=== PATIENT | male | born 1990 | race Asian ===

== ENCOUNTER 2024-08-15 14:26 | Outpatient (REF) | payer BC, SELFPAY ==
--- NOTE | 2024-08-15 | EEG_ITS ---
This is a 16 channel EEG with an EKG lead. Patient is reported awake during the tracing. Background EEG rhythm is mixed theta beta low amplitude with no obvious asymmetry or paroxysmal tendency. Photic stimulation does not produce any significant abnormality. Hyperventilation is unremarkable. No sharp wave spikes or paroxysmal tendency noted. Impression: No significant abnormality noted on this EEG. MTDD
--- OUTSIDE RECORDS SUMMARY | 2024-08-15 14:30 | XMS_ITS | Clinical Summary ---
Author Organization [facility] Address [address] [place] [id number] Phone Care Team Providers Care Records Technician Name Role Phone Parag Grijalva MD Primary Care Provider [phone] Allergies No known active allergies Medications hydroCHLOROthia zide (HYDRODIURIL) 25 mg tablet Take 1 tablet (25 mg total) by mouth daily. 01/16/2024 Active irbesartan (AVAPRO) 75 mg tablet Take 1 tablet (75 mg total) by mouth 1 (one) time each day. Active levETIRAcetam (KEPPRA) 250 mg tablet Take 3 tablets (750 mg total) by mouth 2 (two) times a day for 21 days, THEN 2 tablets (500 mg total) 2 (two) times a day for 7 days. 154 each 04/08/2024 Active Active Problems Problem Noted Date Diagnosed Date SIRS (systemic inflammatory response syndrome) (CMS/HCC V24, CMS/HCC V28) 04/04/2024 Medical History Medical History Date Comments Hypertension Hypercholesteremia Social History Tobacco Use Types Packs/Day Years Used Date Smoking Tobacco: Never Tobacco Cessation:Counseling Given: Not Answered Alcohol Use Standard Drinks/Week Comments Never 0 (1 standard drink = 0.6 oz pur e alcohol) Interpersonal Safety Answer Date Record ed Physical Abuse 2024 Verbal Abuse 2024 Sex and Gender Information Value Date Recorded Sex Assigned at Male 04/04/2024 4:42 PM EST Legal Sex Male 4:06 PM EST Gender Identity Male 04/04/2024 4:42 PM EST Sexual Orientation Straight 04/04/2024 4: 42 PM EST Obstetrics History Last Filed Vital Signs Vital Sign Reading Time Taken Comments Blood Pressure 139/90 04/08/2024 3:23 PM EST Pulse 78 04/08/2024 3:23 PM EST Temperature 36.7 C (98 F) 04/08/2024 3:23 PM EST Respiratory Rate 12 04/08/2024 3:23 PM EST Oxygen Saturation 99% 04/08/2024 3:23 PM EST Inhaled Oxygen Concentration - - Weight 79.4 kg (175 lb) 04/04/2024 7:45 PM EST Height 175.3 cm (5' 9 ) 04/04/2024 7:45 PM EST Body Mass Index 25.84 04/04/2024 7:45 PM EST Plan of Treatment Health Maintenance Due Date Last Done Comments DTaP,Tdap,and Td Vaccines (1 - Tdap) 2007 Hepatitis B Vaccines (1 of 3 - 19+ 3-dose series) 2007 COVID-19 Vaccine ( season) 2023 01/28/2022, 02/11/2021, 06/03/2020, Additional history exists Depression Screening 2024 Social Influencers of Health Screening 2024 Influenza Vaccine (Season Ended) 2024 01/20/2023, 11/12/2018, 11/03/2018 Hypertension/CHF/CAD Annual BMP Blood Test 04/07/2025 04/07/2024, 04/06/2024, 2024, Additional history exists Cholesterol Screening (Lipid Panel) 02/09/2028 02/08/2023 HIV Screening Completed 2024 Hepatitis C Screening Completed 2024, 021 HIB Vaccines Aged Out No longer eligi ble based on patient's age to complete this topic HPV Vaccines Aged Out No longer eligi ble based on patient's age to complete this topic Hepatitis A Vaccines Aged Out No long er eligible based on patient's age to complete this topic IPV Vaccines Aged Out No longer eligi ble based on patient's age to complete this topic MMR Vaccines Aged Out No longer eligi ble based on patient's age to complete this topic Meningococcal ACWY Vaccine Aged Out N o longer eligible based on patient's age to complete this topic Meningococcal B Vaccine Aged Out No l onger eligible based on patient's age to complete this topic Pneumococcal Vaccine: Pediatrics (0 to 5 Years) and At-Risk Patients (6 to 64 Years) Aged Out No longer eligible based on patient's age to complete this topic RSV Immunization Patients Under 20 months Aged Out No longer eligible based on patient's age to complete this topic Varicella Vaccines Aged Out No longer eligible based on patient's age to complete this topic Procedures Procedure Name Priority Date/Time Associated Diagnosis Comments BASIC METABOLIC PANEL Routine 04/07/2024 5:42 AM EST HEPATITIS PANEL, ACUTE WITH REFLEX TO CONFIRMATION Add-On 2024 7:24 AM EST HIV 1, 2 ANTIBODY, P24 ANTIGEN WITH REFLEX TO DIFFERENTIATION Add-On 2024 7:24 AM EST from Last 3 Months or Most Recently Relevant to Health Maintenance Results * (ABNORMAL) Basic metabolic panel (04/07/2024 5:42 AM EST) Sodium 137 133 - 145 mmol/L LAB CHEMISTRY METHOD 04/07/2024 7:14 AM [facility] Potassium 4.3 3.5 - 5.5 mmol/L LAB CHEMISTRY METHOD 04/07/2024 7:14 AM [facility] Chloride 104 96 - 110 mmol/L LAB CHEMISTRY METHOD 04/07/2024 7:14 AM [facility] CO2 28 21 - 32 mmol/L LAB CHEMISTRY METHOD 04/07/2024 7:14 AM [facility] Anion Gap 5 3 - 11 LAB CHEMISTRY METHOD 04/07/2024 7:14 AM [facility] Glucose 156(H) 70 - 100 mg/dL LAB CHEMISTRY METHOD 04/07/2024 7:14 AM [facility] BUN 8 5 - 25 mg/dL LAB CHEMISTRY METHOD 04/07/2024 7:14 AM [facility] Creatinine 0.62(L) 0.70 - 1.30 mg/dL LAB CHEMISTRY METHOD 04/07/2024 7:14 AM EST [facility] eGFR 127 >=60 mL/min/1. 73m2 LAB CHEMISTRY METHOD 04/07/2024 7:14 AM EST [facility] Comment:Calculation based on the Chronic Kidney Disease Epidemiology Collaboration (CKD-EPI) equation refit without adjustment for race. BUN/Creatinine Ratio 12.9 LAB CHEMISTRY METHOD 04/07/2024 7:14 AM EST [facility] Calcium 8.6 8.5 - 10.5 mg/dL LAB CHEMISTRY METHOD 04/07/2024 7:14 AM [facility] Blood Venous blood specimen / Unknown Venipuncture / Unknown 04/07/2024 5:42 AM EST 04/07/2024 6:12 AM EST us Eliseo Carr MD LAB BLOOD ORDERABLE S Final Result [facility] [address] [place] [address], * HIV 1,2 antibody, p24 antigen with reflex to differentiation (2024 7:24 AM EST) HIV Combo AB/AG Negative Negative LAB CHEMISTRY METHOD 2024 1:38 PM EST [facility] Blood Venous blood specimen / Unknown Venipuncture / Unknown 2024 7:24 AM EST 2024 7:36 AM EST [facility] - 2024 1:38 PM EST This assay is a 4th generation assay allowing for earlier detection of HIV infection by detecting the presence of the HIV-1 p24 antigen as well as the traditional antibodies to HIV type 1 (including group O) and type 2. Use of a 4th generation assay is the current CDC recommendation for HIV screening. us Eliseo Carr MD LAB BLOOD ORDERABLE S Final Result [facility] [address] [place] [address], [place] [phone] * Hepatitis panel, acute with reflex to confirmation (2024 7:24 AM EST) Hepatitis B Surface Ag Negative Negative LAB CHEMISTRY METHOD 2024 1:46 PM EST [facility] Hepatitis A Antibody IgM Negative Negative LAB CHEMISTRY METHOD 2024 1:46 PM EST [facility] Hep B Core IgM Negative Negative LAB CHEMISTRY METHOD 2024 1:46 PM EST [facility] Hepatitis C Antibody Negative Negative LAB CHEMISTRY METHOD 2024 1:46 PM EST [facility] Blood Venous blood specimen / Unknown Venipuncture / Unknown 2024 7:24 AM EST 2024 7:36 AM EST Eliseo Carr MD LAB BLOOD ORDERABLE S Final Result Performing Organization Address [facility] Co de Phone Number [facility] [address] [place] [address], [place] [phone] from Last 3 Months or Most Recently Relevant to Health Maintenance Additional Health Concerns Infection Onset Date Last Indicated Streptococcus Group A [address] [place] [phone] [facility] ([facility]) Advance Directives * Full Code - Confirmed (Latest Code Status on File) Date Activated Date Inactivated Comments 04/04/2024 9:53 PM 04/08/2024 6:[address] [facility] was ascertained in the following way: Code status discussion: discussion with patient To update the patient's code status, place a code status order. Do not modify or discontinue any currently active code status orders. * Full Code - Default Date Activated Date Inactivated Comments 04/04/2024 9:39 PM 04/04/2024 9:53 PM This is orde r is used when code status has not been discussed with the patient, or code status is otherwise unknown/unconfirmed To update the patient's code status, place a code status order. Do not modify or discontinue any currently active code status orders. Care Teams Records Technician Relationship Specialty Start Date End Date Parag Grijalva MD [address] [place] [address], [address] [place] [address] PCP - General Internal Medicine 04/04/24
== END 2024-08-15 14:27 | disposition home or self-care (01) ==
LOC: HO.NEURO 14:26
PROVIDERS: PCP Internal Medicine; Visit Provider Psychiatry & Neurology Neurology
DX: G40.909 Epilepsy, unspecified, not intractable, without status epilepticus (principal)
CPT/HCPCS: 95819

== ENCOUNTER → 2024-08-15 14:26 | Outpatient (BNV) | payer BC, SELFPAY | PROVIDERS: PCP Internal Medicine; Visit Provider Psychiatry & Neurology Neurology | DX: G40.909 Epilepsy, unspecified, not intractable, without status epilepticus (principal) | CPT/HCPCS: 95812 ==

== ENCOUNTER 2024-10-02 09:37 | Outpatient (AMB) | payer BC, SELFPAY ==
--- NOTE | 2024-10-02 09:39 | MHC.OFFVIS ---
Intake Visit Reasons: results Allergies No Known Allergies Allergy (Verified 09/24/24 12:41) HPI Comments Details: 34 yo RH man with HTN was admitted at [facility] in Mar for new onset seizure-like activity associated probably wtih a viral or common bacterial URI infection. (Upon admission, there was clinical suspicion of sepsis and liver damage. Respiratory viral panel was negative. Liver enzymes were mildly elevated but hepatitis culture was negative. Blood cultures were negative and he was treated with broad sepctrum iv antibiotics.Prolactin level was 32.7, high) While having fever and chills, he was sitting in a chair when he felt dizzy, became rigid, his eyes rolled back, and he became unresponsive for 30-45 seconds. THis was at home. About 45 minutes later in ER at [facility], he had the similar eipisode with shaking and vomiting. His head CT and brain MRI w/o contrast were normal. EEG revealed bilateral generalized intermittent sharp waves. Tox screen was negative. LP was not done and he was started on Keppra. He was finishing course of amoxicillin and prednisone. NO further seizures since discharge. He is presenting with a history of seizure disorder initially identified in March 2024. Prior to his seizure, he reported feeling chills in his feet, sweating on his forehead, and a brief loss of consciousness. At that time, hospital evaluations included normal head CT and brain MRI, and a slightly abnormal EEG. Though suspected, no brain infection was definitively identified due to the absence of a lumbar puncture. Seizures were initially thought to coincide with an episode of streptococcal throat infection. In recent history, the patient acknowledges experiencing drowsiness as a side effect of his therapy, particularly following carbohydrate intake. He also reports issues with sleep, remaining active until late at night, resulting in inadequate rest characterized by awakenings during sleep. Patient concerns include the potential for sensory stimuli like data center noise and lighting to provoke seizures, although noise is not a widely recognized trigger. Upcoming plans include extensive EEG assessments to refine his diagnosis and evaluate the necessity of his current medication. Review of Systems Const Details: - Neurological: Reports drowsiness following medication. Reports episodes of seizure-like activity, including pre-episode chills in feet and sweating on head prior to loss of consciousness. - Sleep: Reports sleep deprivation, falling asleep late, and nighttime awakenings. - ENT: Reports prior diagnosis of streptococcal pharyngitis. - Overall: Reports increased fatigue linked with sleep deprivation and carbohydrate intake. Physical Exam Neuro Other: Mental Status: Alert and oriented to person, place, and time. Normal attention. Normal spontaneous speech, fluency, and comprehension. No obvious issues with mood and memory. Affect is appropriate. Cranial Nerves: CN II: Visual dunne full to confrontation, visual acuity intact. CN III, IV, : Pupils equal, round, reactive to light and accommodation. Extraocular movements are normal. CN V: Facial sensation is normal. CN VII: Facial movements symmetrical. CN VIII: Hearing intact to bedside conversation is normal. CN IX, X: Palate elevates symmetrically. CN XI: Shoulder shrug and head turn symmetrical. CN XII: Tongue midline without atrophy or fasciculations. Extrapyramidal: Full facial expressions and blinking. No rigidity. Movements are appropriate with no tremor or abnormality. Speech: Normal; no dysarthria or tremor. Assessment & Plan Assessment & Plan (1) Seizure disorder: Comment: EEG at [facility] in August 2024: [facility] MRI brain WO at [facility] in Mar 2024: L CT brain WO at [facility] in Mar 2024: [facility] EEG at [facility] Mar 2024: Intermittent gen sharp waves Code(s): G40.909 - Epilepsy, unspecified, not intractable, without status epilepticus Category: Medical Plan: The patient will undergo a 48-hour EEG to further evaluate the underlying seizure disorder and ascertain the necessity of continued medication. Discontinuation of medication will occur briefly during the EEG to enhance result accuracy. Interactions between potential sensory triggers at the workplace and seizure activity were discussed, recommending continued noise-canceling devices. Pending results, consider cessation of medication if EEG findings remain normal. Refill prescriptions for current management until subsequent evaluation. Plan Impression: Possible seizure disorder Rec: a: 48 hr EEG b: For now continue seizure med, levetiracetam 750mg bid Orders: Orders EEG ambulatory Today G40.909 - Epilepsy, unspecified, not intractable, without status epilepticus Medications: New levetiracetam 750 mg PO BID 180 tabs 0RF Coding Level of Care Code Est Pt Level 4 (07572) Diagnoses Seizure disorder G40.909
--- OUTSIDE RECORDS SUMMARY | 2024-10-02 10:25 | XMS_ITS | Clinical Summary ---
Author Organization [facility] Address [address] [place] [address] Phone Care Team Providers Care Wine Bottle Inspector Name Role Phone Parag Grijalva MD Primary Care Provider [phone] Allergies No known active allergies Medications clotrimazole (LOTRIMIN) 1 % cream Apply topically 2 (two) times a day. 35 g 5 4 Active Additional Information Patient not taking.Reported on 04/10/2024 hydroCHLOROthiaz ronaldo 25 MG tabletIndication s:Uncontrolled hypertension TAKE 1 TABLET (25 MG TOTAL) BY MOUTH DAILY. 90 tablet 3 4 Active irbesartan (AVAPRO) 75 MG tablet TAKE 1 TABLET BY MOUTH EVERY DAY 90 tablet 5 Active Active Problems Problem Noted Date Diagnosed Date Metabolic syndrome 11/10/2023 Overview (11/10/2023): Work on diet/exercise Tinea pedis of both feet 11/10/2023 Plantar fascial fibromatosis 12/16/2022 Overview (12/16/2022): jd Discussed mgmt, running shoes, massage ball, etc Renal cyst, left 04/12/2021 Overview (04/12/2021): One septation, 1.8cm recheck 2022 Mixed hyperlipidemia 02/10/2021 Assessment & Plan (02/10/2021 8:18 AM EST): Lifestyle changes advised, he will start with blood pressure control, would like to reassess his cholesterol in a few months. Prediabetes 02/10/2021 Assessment & Plan (12/16/2022 9:49 AM EDT): Discussed getting back into exercise, recheck A1c Assessment & Plan (02/10/2021 8:19 AM EST): Reassess in 3 to 4 months. Lifestyle changes discussed. Mediterranean diet advised. Limit carbs. Uncontrolled hypertension 02/10/2021 Overview (12/16/2022): Stable on losartan and hydrochlorothiazide Assessment & Plan (04/10/2024 12:39 PM EST): Blood pressure soft today. Currently on Irbesartan and Hydrochlorothiazide. -Hold Irbesartan and monitor blood pressure at home. -If blood pressure increases, consider restarting Irbesartan and seek guidance via patient portal or by calling the office. Assessment & Plan (12/16/2022 9:49 AM EDT): Stable, check lites Assessment & Plan (02/10/2021 8:20 AM EST): Lifestyle changes discussed, limit red meats, salt, increase physical activity. Start on losartan. Side effects discussed. Ultrasound kidneys advised. Check blood pressures at home, follow-up with results via patient [place] in 2 weeks. May require more than 1 medication to manage his blood pressure. Encounters Date Type Department Care Team Description 09/11/[address] [place] [address] Parag Grijalva MD Medication Refill 08/19/2024 Orders Only [address] [place] [address] ProviderChon MD 07/14/[address] [place] [address] Parag Grijalva MD Medication Refill from Last 3 Months Immunizations Immunization Administration Dates Next Due Influenza Quadrivalent Preservative Free IM 10/15 Influenza, Unspecified Formulation 11/12/2018 Family History Medical History Relation Comments Intracerebral hemorrhage Father Hypertension Mother No Known Problems Son Cancer Neg Hx Relation Status Comments Brother 1 Alive Brother 2 Alive Father (Age 65) Mother Alive Sister Alive Son Alive Social History Tobacco Use Types Packs/Day Years Used Date Smoking Tobacco: Never Smokeless Tobacco: Never Tobacco Cessation:Counseling Given: Not Answered Alcohol Use Standard Drinks/Week Comments Never 0 (1 standard drink = 0.6 oz pur e alcohol) Child or Family Care Answer Date Record ed Do you have problems with on e of the following making it difficult for you to work, study, or receive health care? No 11/10/2023 Education Answer Date Recorded Are you interested in help w ith more adult education (for example, completing high school, GED, job training, learning the [place] language, technical skills, or developing parenting skills)? No 11/10/2023 Are you concerned about learning? Not on file 11/10/2023 No 11/10/2023 Yes 11/10/2023 Food Answer Date Recorded Within the past 6 months we worried whether our food would run out before we got money to buy more. Never True 11/10/2023 Within the past 6 months the food we bought just didn't last and we didn't have enough money to get more. Never True Residential Stability Answer Date Recor ded What is your housing situation today? I have tia sandoval 11/10/2023 How many times have you move d in the past 12 months? Zero (I did not move) 11/10/2023 Paying for Meds Answer Date Recorded Do you have trouble paying for medicines? No 11/10/2023 Paying Utility Bills Answer Date Record ed Do you have trouble paying your heating or elect ricity bill? No 11/10/2023 Transportation Answer Date Recorded Has the lack of transportati on kept you from medical appointments or from getting medications? No 11/10/2023 Unemployment Answer Date Recorded Are you currently unemployed or working on a part-time or temporary basis, and looking for work? No 11/10/2023 Digital Access Answer Date Recorded No 11/10/2023 Yes 11/10/2023 Do you have reliable internet access at home? Ye s 11/10/2023 Do you have a device (e.g., phone, tablet, computer) with a working camera? Yes 11/10/2023 Intimate Partner Violence Answer Date R ecorded Denied Basic Needs Not on file 11/10/2023 In the past 12 months have y ou been in a relationship with a person who hurts, threatens, or tries to control you? No 11/10/2023 Worried food would run out Not on file 11/09 In the past 12 months have y ou been in a relationship with a person who hurts, threatens, or tries to control you? No 11/10/2023 Sex and Gender Information Value Date Recorded Sex Assigned at Not on file Legal Sex Male 12:16 PM EDT Gender Identity Not on file Sexual Orientation Not on file Last Filed Vital Signs Vital Sign Reading Time Taken Comments Blood Pressure 96/62 04/10/2024 10:38 AM EST Pulse 83 04/10/2024 10:38 AM EST Temperature 36.1 C (97 F) 04/10/2024 10:38 AM EST Respiratory Rate 20 12/16/2022 9:19 AM EDT Oxygen Saturation 99% 04/10/2024 10:38 AM EST Inhaled Oxygen Concentration - - Weight 79.7 kg (175 lb 9.6 oz) 04/10/2024 10:38 AM EST Height 173.4 cm (5' 8.27 ) 11/10/2023 4:31 PM ED T Body Mass Index 26.49 11/10/2023 4:31 PM EDT Plan of Treatment Upcoming Encounters Date Type Department Care Team (Late st Contact Info) Description 11/15/2024 4:30 PM EDT Office Visit [facility] Medicine [address] [place] [address] [place] [address] Parag Grijalva MD [address] [facility] [place] [address] Health Maintenance Due Date Last Done Comments Adult Td,Tdap Booster 1988 COVID-19 VACCINE ( season) 2023 01/28/2022, 02/11/2021, 06/03/2020, Additional history exists CREATININE LEVEL 02/09/2024 02/08/2023, , 11/11/2020, Additional history exists POTASSIUM LEVEL 02/09/2024 02/08/2023, 01/13, 11/11/2020, Additional history exists BLOOD PRESSURE 10/08/2024 04/10/2024 DEPRESSION SCREENING 11/09/2024 11/10/2023 SCREENING FOR DIABETES 02/08/2026 02/08/2023, 2022 LIPID PANEL 02/09/2028 02/08/2023, 01/13, 11/11/2020, Additional history exists HEPATITIS C SCREENING Completed 01/29/2021 HIV ONE-TIME SCREENING (18-65 YEARS) Completed 01/29/2021 SMOKING STATUS SCREENING (Once After 26 Yrs) Completed 04/10/2024 HEPATITIS A VACCINES Aged Out No long er eligible based on patient's age to complete this topic HIB VACCINES Aged Out No longer eligi ble based on patient's age to complete this topic MENINGOCOCCAL VACCINES (ACWY) Aged Out No longer eligible based on patient's age to complete this topic MENINGOCOCCAL VACCINES (B) Aged Out N o longer eligible based on patient's age to complete this topic PNEUMOCOCCAL VACCINES (0-49 years) Aged Out No longer eligible based on patient's age to complete this topic Medical Devices Not on file Procedures Procedure Name Priority Date/Time Associated Diagnosis Comments OUTSIDE PROCEDURE Routine 08/15/2024 8:3 7 AM EDT LIPID PANEL Routine 02/08/2023 2:49 PM EST Mixed hyperlipidemia BASIC METABOLIC PANEL Routine 02/08/2023 2:48 PM EST Uncontrolled hypertension HEPATITIS C ANTIBODY, QUALITATIVE Routine 01/29/2021 12:52 PM EST Annual physical exam Need for hepatitis C screening test from Last 3 Months or Most Recently Relevant to Health Maintenance Results * Outside Procedure (08/15/2024 8:37 AM EDT) us Historical Provider PROCEDURE/MINOR SURGICAL PERFORMABLES Final Result * (ABNORMAL) Lipid panel (02/08/2023 2:49 PM EST) HDL 38 mg/dL [facility] Comment: Interpretation <40 mg/dL: Low HDL cholesterol (major risk factor for CHD) Greater than or equal to 60 mg/dL: High HDL cholesterol ( negative risk factor for CHD) HDL - cholesterol is affected by a number of factors, e.g. smoking, excerise, hormones, sex and age. CHOLESTEROL 237 0 - 240 mg/dL [facility] TRIGLYCERIDES 640(H) 30 - 160 mg/dL [facility] LDL NOT CALCULATED 50 - 129 mg/dL [facility] Comment: Unable to calculate due to elevated TRIG of greater than 400. A measured LDL will be performed. CARDIAC RISK RATIO 6.2(H) 3.4 - 5.0 [facility] Blood 02/08/2023 2:49 PM EST 02/08/2023 2:51 PM EST Parag Grijalva MD LAB BLOOD ORDERABLES Final Resu lt [address] [address] * Basic metabolic panel (02/08/2023 2:48 PM EST) SODIUM 138 133 - 146 mmol/L [facility] CHLORIDE 99 96 - 108 mmol/L [facility] POTASSIUM 3.5 3.3 - 5.1 mmol/L [facility] Comment:Specimen slightly he molyzed, result may be falsely elevated. CO2 28 21 - 35 mmol/L [facility] BUN 13 6 - 19 mg/dL [facility] CREATININE 0.70 0.5 - 1.5 mg/dL [facility] GLUCOSE 85 70 - 99 mg/dL [facility] CALCIUM 9.9 8.4 - 10.3 mg/dL [facility] EGFR >120 >59 mL/min/1.7 3m2 [facility] Comment:Estimated glomerular filtration rate calculated using the CKD-EPI refit equation. ANION GAP 15 10 - 20 mmol/L [facility] Blood 02/08/2023 2:48 PM EST 02/08/2023 2:51 PM EST us Parag Grijalva MD LAB BLOOD ORDERABLES Final Resu lt Performing Organization Address City/[facility]/ZIP Co de Phone Number [address] [address] * Hepatitis C antibody, qualitative (01/29/2021 12:52 PM EST) HCV NON-REACTIV E NON-REACTI VE [facility] Blood 01/29/2021 12:5 2 PM EST 01/29/2021 12:56 PM EST us Parag Grijalva MD LAB BLOOD ORDERABLES Final Resu lt Performing Organization Address City/[facility]/ZIP Co de Phone Number [address] [address] from Last 3 Months or Most Recently Relevant to Health Maintenance [place] [address] [place] [address] [place] [address] [place] [address] OUT OF STATE PPO [place] OUT OF STATE PPO BL[place] OUT OF STATE PPO BL[place] OUT OF STATE PPO [place] OUT OF [facility] PPO [facility] OUT OF [facility] PPO [facility] OUT [place] [address] [place] [address] OUT [facility] PPO Care Teams Wine Bottle Inspector Relationship Specialty Start Date End Date Parag Grijalva MD [address] [place] [address], [address] [place] [address] PCP - General Internal Medicine 06/26/18 Additional Source Comments The information contained in this document represents components of the legal health record. It is not the complete legal health record.[facility]
--- OUTSIDE RECORDS SUMMARY | 2024-10-02 10:25 | XMS_ITS | Clinical Summary ---
Author Organization 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 Phone Parag Grijalva MD Primary Care Provider [phone] Allergies No known active allergies Medications hydroCHLOROthia [...] 02/11/2021, 06/03/2020, Additional history exists Depression Screening 02/14/2024 Social Influencers of Health Screening 2024 Influenza Vaccine (#1) 2024 , 11/12/2018, 11/03/2018 Hypertension/CHF/CAD Annual BMP Blood Test [...] 5 Years) and At-Risk Patients (6 to 49 Years) Aged Out No longer eligible based [...] mmol/L LAB CHEMISTRY METHOD 04/07/2024 7:14 AM [facility] Potassium 4.3 3.5 - 5.5 mmol/L LAB CHEMISTRY METHOD 04/07/2024 7:14 AM [facility] Chloride 104 96 - 110 mmol/L LAB CHEMISTRY METHOD 04/07/2024 7:14 AM [facility] CO2 28 21 - 32 mmol/L LAB CHEMISTRY METHOD 04/07/2024 7:14 AM [facility] Anion Gap 5 3 - 11 LAB CHEMISTRY METHOD 04/07/2024 7:14 AM [facility] Glucose 156(H) 70 - 100 mg/dL LAB CHEMISTRY METHOD 04/07/2024 7:14 AM [facility] BUN 8 5 - 25 mg/dL LAB CHEMISTRY METHOD 04/07/2024 7:14 AM [facility] Creatinine 0.62(L) 0.70 - 1.30 mg/dL LAB CHEMISTRY METHOD 04/07/2024 7:14 AM EST [facility] eGFR 127 >=60 mL/min/1. 73m2 LAB CHEMISTRY METHOD 04/07/2024 7:14 AM EST [facility] Comment:Calculation based on the Chronic Kidney Disease Epidemiology Collaboration (CKD-EPI) equation refit without adjustment for race. BUN/Creatinine Ratio 12.9 LAB CHEMISTRY METHOD 04/07/2024 7:14 AM EST [facility] Calcium 8.6 8.5 - 10.5 mg/dL LAB CHEMISTRY METHOD 04/07/2024 7:14 AM [facility] Blood Venous blood specimen / Unknown Venipuncture / Unknown 04/07/2024 5:42 AM EST 04/07/2024 6:12 AM EST us Eliseo Carr MD LAB BLOOD ORDERABLE S Final Result [facility] [address] [place] [address], * HIV 1,2 antibody, p24 antigen with reflex to differentiation (2024 7:24 AM EST) HIV Combo AB/AG Negative Negative LAB CHEMISTRY METHOD 2024 1:38 PM EST [facility] Blood Venous blood specimen / Unknown Venipuncture / Unknown 2024 7:24 AM EST 2024 7:36 AM EST [facility] - 2024 1:38 PM EST This [...] MD LAB BLOOD ORDERABLE S Final Result [facility] [address] [place] [address], [place] [phone] * Hepatitis panel, acute with reflex to confirmation (2024 7:24 AM EST) Hepatitis B Surface Ag Negative Negative LAB CHEMISTRY METHOD 2024 1:46 PM EST [facility] Hepatitis A Antibody IgM Negative Negative LAB CHEMISTRY METHOD 2024 1:46 PM EST [facility] Hep B Core IgM Negative Negative LAB CHEMISTRY METHOD 2024 1:46 PM EST [facility] Hepatitis C Antibody Negative Negative LAB CHEMISTRY METHOD 2024 1:46 PM EST [facility] Blood Venous blood specimen / Unknown Venipuncture / Unknown 2024 7:24 AM EST 2024 7:36 AM EST Eliseo Carr MD LAB BLOOD ORDERABLE S Final Result Performing Organization Address [facility] Co de Phone Number [facility] [address] [place] [address], [place] [phone] from Last 3 Months or Most Recently Relevant to Health Maintenance Additional Health Concerns Infection Onset Date Last Indicated Streptococcus Group A [address] [place] [address] [facility] ([facility]) Advance Directives * Full Code [...] currently active code status orders. Care Teams Construction Ironworker Helper Relationship Specialty Start Date End Date Parag Grijalva MD [address] [place] [address], [address] [place] [address] PCP - General Internal Medicine 04/04/24
== END 2024-10-02 10:26 | disposition home or self-care (01) ==
LOC: HO.HSM 09:38
PROVIDERS: PCP Internal Medicine; Visit Provider Psychiatry & Neurology Neurology
DX: G40.909 Epilepsy, unspecified, not intractable, without status epilepticus (principal)
CPT/HCPCS: 99214